=== PATIENT | female | born 1995 | race Two or more races ===

== ENCOUNTER 2017-01-10 00:07 | Emergency (ER) | payer OTHER ==
[~2017-01-10] VITALS: Ht 172.7 cm; Wt 73.5 kg
[2017-01-10] MEDS ORDERED: HYDROmorphone 1 MG/ML, 1ML ONE (01:48)
[2017-01-10] MEDS ORDERED: DEXAMETHASONE 4 MG TABLET ONE (01:49)
[2017-01-10] MEDS ORDERED: DIAZEPAM 5 MG TABLET ONE (01:49)
[2017-01-10] MEDS ORDERED: DEXAMETHASONE 4 MG TABLET PO ONE (02:00)
[2017-01-10] MEDS ORDERED: HYDROmorphone 1 MG/ML, 1ML IM ONE (02:00)
[2017-01-10] MEDS ORDERED: DIAZEPAM 5 MG TABLET PO ONE (02:00)
[2017-01-10 03:28] VITALS: BP 122/62
== END 2017-01-10 03:30 | disposition home or self-care (01) ==
LOC: ED 03:24
DX: M54.41 Lumbago with sciatica, right side (principal); M48.07 Spinal stenosis, lumbosacral region; M54.9 Dorsalgia, unspecified; G89.29 Other chronic pain; F90.9 Attention-deficit hyperactivity disorder, unspecified type
CPT/HCPCS: 72110; 96372; 99284; J1170